=== PATIENT | female | born 1995 | race Caucasian/White ===

== ENCOUNTER 2024-07-09 10:54 | Outpatient (OUT) | payer SELFPAY ==
--- NOTE | 2024-07-09 10:55 | US_ITS ---
The [address] [address] Patient Name: SHLOMO HADLEY MRN: [id number] date: 1995 Sex: F Assigned Patient Location: [facility] Current Patient Location: Accession/Order Number: [id number] Exam Date: 07/09/2024 10:56 Report Date: 07/11/2024 07:10 At the request of: JERAMIE QUICK Procedure: US pelvis w/ transvaginal EXAMINATION: US pelvis w/ transvaginal HISTORY: PELVIC PAIN COMPARISON: No relevant comparison available. FINDINGS: The uterus is normal in size, contour and echotexture measuring 7.8 x 4.3 x 5.3 cm. the uterus is anteverted and anteflexed. Endometrium measures 9 mm, normal The right ovary is normal measuring 3.6 x 1.9 x 3.5 cm. Normal color Doppler flow The left ovary is normal measuring 2.6 x 1.4 x 2.5 cm. Normal color Doppler flow. Small amount of free pelvic fluid in the cul-de-sac, within normal limits US/US pelvis w/ transvaginal IMPRESSION: No acute abnormality Electronically authenticated by: STACY RAYMOND Date: 07/11/2024 07:10
== END 2024-07-09 10:55 | disposition home or self-care (01) ==
PROVIDERS: Visit Provider Physician Assistant
DX: N94.89 Other specified conditions associated with female genital organs and menstrual cycle (principal); Z87.42 Personal history of other diseases of the female genital tract
CPT/HCPCS: 76830; 76856